=== PATIENT | female | born 1960 | race African-American/Black ===

== ENCOUNTER 2022-04-26 13:37 | Emergency (ER) | payer OTHER ==
[~2022-04-26] VITALS: Ht 152.4 cm; Wt 71.5 kg
[2022-04-26 13:40] VITALS: BP 144/78
[2022-04-26] MEDS ORDERED: IV RINGERS,LACTATED 1000ML 1,000 ML IV ONE (14:45)
[2022-04-26 15:02] LABS: BASO % 1 % (0-3); EOS # 0.1 x10^3/uL (0.0-0.7); EOS % 2 % (0-3); HEMATOCRIT 34.7 % (36.0-47.0); LYMPH # 2.4 x10^3/uL (1.0-4.8); LYMPH % 40 % (24-48); MEAN CORPUSCULAR HEMOGLOBIN 25 pg (25-35); MEAN CORPUSCULAR HGB CONC 32 g/dL (31-37); MEAN CORPUSCULAR VOLUME 79 fL (79-100); MONO # 0.7 x10^3/uL (0.0-1.1); MONO % 11 % (0-9); NEUT # 2.8 x10^3/uL (1.8-7.7); NEUT % 46 % (31-73); PLATELET COUNT 279 x10^3/uL (140-400); RED CELL DISTRIBUTION WIDTH 14.1 % (11.5-14.5); WHITE BLOOD COUNT 6.1 x10^3/uL (4.0-11.0)
--- NOTE | 2022-04-26 15:10 | PHYS DOC ---
Past Medical History Past Medical History: Asthma, Hypertension Additional Past Medical Histor: frequent OM (BREANNA MENSAH) Past Surgical History: No Surgical History (BREANNA MENSAH) Smoking Status: Never Smoker Alcohol Use: Heavy Drug Use: None (BREANNA MENSAH) General Adult EDM: Chief Complaint: DIZZY/LIGHT HEADED HPI: HPI: Patient is a 61 year old female with past medical history that includes hypertension who presents with positional lightheadedness today. Patient states her symptoms began around 0800 this morning, when she stood up "too quickly" and bent over to tie her shoes. At rest, without movement, she denies symptoms. Patient states she typically has "ringing in her ears," but since the symptoms have began, she does not have any ringing in her ears. Patient denies hearing loss, ear pain, room-spinning/vertigo, vision changes, paresthesias. (BREANNA MENSAH) Review of Systems: Review of Systems: Constitutional: Denies fever, chills or generalized weakness Eyes: Denies change in visual acuity, visual field deficits or discharge HENT: See HPI Respiratory: Denies cough or shortness of breath Cardiovascular: Denies chest pain, palpitations or edema GI: Denies abdominal pain, nausea, vomiting, bloody stools or diarrhea : Denies dysuria or hematuria Musculoskeletal: Denies back pain or joint pain Integument: Denies rash or other skin lesion Neurologic: See HPI (BREANNA MENSAH) Heart Score: C/O Chest Pain: No (BREANNA MENSAH) Current Medications: Current Medications Medications (Trade) Dose Ordered Sig/Kral Start Time Stop Time Status Last Admin Dose Admin Ringer's Solution 1,000 ml @ 1,000 mls/hr 1X ONCE 04/26/22 14:45 04/26/22 15:44 (BREANNA MENSAH) Allergies: Allergies: Allergies Coded Allergies Type Severity Reaction Last Updated Verified tramadol Allergy Mild 04/26/22 Yes Uncoded Allergies Type Severity Reaction Last Updated Verified PENICILLIN Allergy Mild 04/26/22 (BREANNA MENSAH) Physical Exam: PE: Constitutional: Well developed, well nourished, no acute distress, non-toxic appearance. HENT: Normocephalic, atraumatic, bilateral external ears normal, left tympanic membrane erythematous without fluid levels, right tympanic membrane pearly olivas without erythema or fluid levels, oropharynx moist, no oral exudates, nose normal. Eyes: PERRL, EOMI, conjunctiva normal, no discharge. Neck: Normal range of motion, no stridor. Cardiovascular: Heart rate regular. Heart rhythm regular. Lungs & Thorax: Equal thoracic expansion, no increased work of breathing, no chest wall crepitus or tenderness. Skin: Warm, dry, no erythema, no rash. Extremities: No cyanosis, no clubbing, ROM intact, no edema. Neurologic: Alert and oriented x4, normal motor function, normal sensory function, no focal deficits noted. (BREANNA MENSAH) Current Patient Data: Labs: Laboratory Tests Test 04/26/22 14:55 04/26/22 15:41 White Blood Count 6.1 x10^3/uL (4.0-11.0) Red Blood Count 4.40 x10^6/uL (3.50-5.40) Hemoglobin 11.0 g/dL (12.0-15.5) Hematocrit 34.7 % (36.0-47.0) Mean Corpuscular Volume 79 fL (79-100) Mean Corpuscular Hemoglobin 25 pg (25-35) Mean Corpuscular Hemoglobin Concent 32 g/dL (31-37) Red Cell Distribution Width 14.1 % (11.5-14.5) Platelet Count 279 x10^3/uL (140-400) Neutrophils (%) (Auto) 46 % (31-73) Lymphocytes (%) (Auto) 40 % (24-48) Monocytes (%) (Auto) 11 % (0-9) Eosinophils (%) (Auto) 2 % (0-3) Basophils (%) (Auto) 1 % (0-3) Neutrophils # (Auto) 2.8 x10^3/uL (1.8-7.7) Lymphocytes # (Auto) 2.4 x10^3/uL (1.0-4.8) Monocytes # (Auto) 0.7 x10^3/uL (0.0-1.1) Eosinophils # (Auto) 0.1 x10^3/uL (0.0-0.7) Basophils # (Auto) 0.0 x10^3/uL (0.0-0.2) Sodium Level 143 mmol/L (136-145) Potassium Level 4.3 mmol/L (3.5-5.1) Chloride Level 107 mmol/L (98-107) Carbon Dioxide Level 28 mmol/L (21-32) Anion Gap 8 (6-14) Blood Urea Nitrogen 13 mg/dL (7-20) Creatinine 0.7 mg/dL (0.6-1.0) Estimated GFR (Cockcroft-Gault) 102.6 BUN/Creatinine Ratio 19 (6-20) Glucose Level 90 mg/dL (70-99) Calcium Level 9.7 mg/dL (8.5-10.1) Phosphorus Level 4.1 mg/dL (2.6-4.7) Magnesium Level 2.1 mg/dL (1.8-2.4) Total Bilirubin 0.3 mg/dL (0.2-1.0) Aspartate Amino Transf (AST/SGOT) 20 U/L (15-37) Alanine Aminotransferase (ALT/SGPT) 24 U/L (14-59) Alkaline Phosphatase 125 U/L (46-116) Troponin I High Sensitivity 6 ng/L (4-50) Total Protein 7.6 g/dL (6.4-8.2) Albumin 4.1 g/dL (3.4-5.0) Albumin/Globulin Ratio 1.2 (1.0-1.7) Urine Collection Type Unknown Urine Color (Auto) Colorless Urine Turbidity Clear Urine pH (Auto) 7.0 (<5.0-8.0) Urine Specific [place] 1.008 (1.000-1.030) Urine Protein (Auto) Negative mg/dL (Negative) Urine Glucose (Auto)(UA) Negative mg/dL (Negative) Urine Ketones (Auto) Negative mg/dL (Negative) Urine Blood (Auto) Negative (Negative) Urine Nitrite Negative (Negative) Urine Bilirubin (Auto) Negative (Negative) Urine Urobilinogen (Auto) Normal mg/dL (Normal) Urine Leukocyte Esterase (Auto) Negative (Negative) Urine RBC 0 /HPF (0-2) Urine WBC 0 /HPF (0-4) Urine Squamous Epithelial Cells Occ /LPF Urine Bacteria Few /HPF (0-FEW) Vital Signs: Vital Signs Date Time Temp Pulse Resp B/P (MAP) Pulse Ox O2 Delivery O2 Flow Rate FiO2 04/26/22 13:40 97.8 83 18 144/78 (100) 98 Room Air 97.8 Orthostatic VS negative. (BREANNA MENSAH) EKG: EKG: EKG Interpreted by Dr. Rivers at 1507: Regular rate and rhythm 82 bpm with no ectopic beats. SD 180 ms/QT 364 ms/QTc 420 ms. No STEMI. (BREANNA MENSAH) Radiology/Procedures: Radiology/Procedures: PROCEDURE: PORTABLE CHEST 1V EXAMINATION: XR CHEST 1V CLINICAL HISTORY: Lightheaded. EXAM DATE/TIME: 04/26/2022 2:59 PM COMPARISON: None FINDINGS: Lines, Tubes, and Devices: None. Cardiomediastinal Silhouette: Within normal limits. Lungs and Pleura: No evidence of focal airspace consolidation or pleural effusion. Pulmonary vasculature unremarkable. Bones and Soft Tissues: Degenerative changes in the thoracic spine. IMPRESSION: No evidence of acute cardiopulmonary abnormality. Electronically signed by: Arnold Hays DO (04/26/2022 3:23 PM) [facility] (BREANNA MENSAH) Course & Med Decision Making: Course & Med Decision Making Pertinent Labs and Imaging studies reviewed. (See chart for details) Patient is a 61-year-old female with past medical history that includes hypertension and heavy alcohol use who presents with lightheadedness that began this morning. The Adriana maneuver did not make any significant change for the patient when performed bilaterally. Orthostatic vital signs negative. Work-up today is largely unremarkable, though patient does appear to have left otitis media. Patient is advised to follow-up with her primary care doctor for continued complaints. Return precautions were provided. Patient understands and is agreeable to discharge plan. (BREANNA MENSAH) Dragon Disclaimer: Dragon Disclaimer: This electronic medical record was generated, in whole or in part, using a voice recognition dictation system. (BREANNA MENSAH) Departure Departure Impression: Primary Impression: Otitis media of left ear Qualified Codes: H66.005 - Acute suppurative otitis media without spont aneous rupture of ear drum, recurrent, left ear Additional Impression: Light-headed feeling Disposition: 01 HOME / SELF CARE / HOMELESS Condition: STABLE Patient Instructions: Otitis Media, Adult, Ihyj-[id number], Vertigo, [id number] Additional Instructions: EMERGENCY DEPARTMENT GENERAL DISCHARGE INSTRUCTIONS Thank you for coming to [facility] Emergency Department (ED) today and trusting us with you care. We trust that you had a positive experience in our Emergency Department. If you wish to speak to the department management, you may call the director at . YOUR FOLLOW UP INSTRUCTIONS ARE FOLLOWS: 1. Follow up with your primary care doctor. If you do not have a primary doctor, please ask for a resource list of physicians or clinics that may be able to assist you with follow up care. 2. The emergency provider has interpreted your imaging studies, if any were or dered. The radiology manager imaging also reviewed them. If there is a change in the findings, you will be notified in 48 hours when at all possible. 3. If a lab test or culture has been done, your results will be reviewed and you will be notified if you need a change in treatment. 4. Follow instructions verbalized to you and refer to the printouts if needed. ADDITIONAL INSTRUCTIONS AND INFORMATION: 1. Your care today has been supervised by a physician who is specially trained in emergency care. Many problems require more than one evaluation for a complete diagnosis and treatment. We recommend that you schedule your follow up appointment as recommended to ensure complete treatment of you illness or injury. If you are unable to obtain follow up care and continue to have a problem, or if your condition worsens, we recommend that you return to the ED. 2. We are not able to safely determine your condition over the phone nor are we able to give sound medical advice over the phone. For these safety reasons, if you call for medical advice we will ask you to come to the ED for further evaluation. 3. If you have any questions regarding these discharge instructions please call the ED at . SAFETY INFORMATION: In the interest of safety, wellness, and injury prevention; we encourage you to wear your seat belt, if you smoke; quite smoking, and we encourage family to use a protective helmet for bicycling and other sporting events that present an increased risk for head injury. IF YOUR SYMPTOMS WORSEN OR NEW SYMPTOMS DEVELOP, OR YOU HAVE CONCERNS ABOUT YOUR CONDITION; OR IF YOUR CONDITION WORSENS WHILE YOU ARE WAITING FOR YOUR FOLLOW UP APPOINTMENT; EITHER CONTACT YOUR PRIMARY CARE DOCTOR, THE PHYSICIAN WHOSE NAME AND NUMBER YOU WERE GIVEN, OR RETURN TO THE ED IMMEDIATELY. Scripts Azithromycin (AZITHROMYCIN TABLET) 250 Mg Tablet 1 PKG PO UD for 5 Days, #6 TAB 0 Refills 2 the first day followed by 1 for days 2-5 Prov: BREANNA MENSAH 04/26/22 Attending Signature Attending Signature I have reviewed the PA/SENIOR HR BUSINESS PARTNER's note and plan of care. I was available for consultation as needed during the patient's visit in the emergency department. I agree with the clinical impression, plan, and disposition. (KINGSLEY RIVERS DO) BREANNA MENSAH April 26, 2022 15:10 KINGSLEY RIVERS DO April 26, 2022 17:56
[2022-04-26 15:21] LABS: CALCIUM 9.7 mg/dL (8.5-10.1); CREATININE 0.7 mg/dL (0.6-1.0); GFR 102.6; POTASSIUM 4.3 mmol/L (3.5-5.1)
--- NOTE | 2022-04-26 15:25 | RAD ---
EXAMINATION: XR CHEST 1V CLINICAL HISTORY: Lightheaded. EXAM DATE/TIME: 04/26/2022 2:59 PM COMPARISON: None FINDINGS: Lines, Tubes, and Devices: None. Cardiomediastinal Silhouette: Within normal limits. Lungs and Pleura: No evidence of focal airspace consolidation or pleural effusion. Pulmonary vasculat ure unremarkable. Bones and Soft Tissues: Degenerative changes in the thoracic spine. IMPRESSION: No evidence of acute cardiopulmonary abnormality. Electronically signed by: Arnold Hays DO (04/26/2022 3:23 PM) JOYCELYN
[2022-04-26 15:26] LABS: ALBUMIN 4.1 g/dL (3.4-5.0); ALBUMIN/GLOBULIN RATIO 1.2 (1.0-1.7); MAGNESIUM 2.1 mg/dL (1.8-2.4); PHOSPHORUS 4.1 mg/dL (2.6-4.7); TOTAL BILIRUBIN 0.3 mg/dL (0.2-1.0); TOTAL PROTEIN 7.6 g/dL (6.4-8.2)
[2022-04-26 16:01] LABS: BACTERIA,URINE FEW /HPF (0-FEW); RBC,URINE 0 /HPF (0-2); WBC,URINE 0 /HPF (0-4)
[2022-04-26] MEDS ORDERED: AZIT250T6 PO (16:17)
--- NOTE | 2022-04-30 08:22 | EKG ---
[facility] [address] [place] [address] Test Date: 2022-04-26 Test Time: 15:05:29 Pat Name: REBA SHAH Department: Room: Gender: F Freight Clerk: : 1960 Requested By: BREANNA MENSAH Order Number: [id number] Reading MD: Calos Vick MD Measurements Intervals [place] Rate: 82 P: 41 OK: 180 QRS: 7 QRSD: 70 T: 26 QT: 364 QTc: 428 Interpretive Statements SINUS RHYTHM Electronically Signed On 04-30-2022 11:24:22 CDT by Calos Vick MD
== END 2022-04-26 16:52 | disposition home or self-care (01) ==
LOC: ER 13:37
DX: H66.002 Acute suppurative otitis media without spontaneous rupture of ear drum, left ear (principal); R42 Dizziness and giddiness; J45.909 Unspecified asthma, uncomplicated; I10 Essential (primary) hypertension; Z88.0 Allergy status to penicillin; Z88.6 Allergy status to analgesic agent
CPT/HCPCS: 36415; 71045; 80053; 81001; 83735; 84100; 84484; 85025; 93005; 96360; 96361; 99285; J7120